=== PATIENT | female | born 2000 | race Caucasian/White ===

== ENCOUNTER 2019-11-28 16:19 | Emergency (ER) | payer BC ==
[~2019-11-28] VITALS: Ht 165.1 cm; Wt 106.3 kg
--- NOTE | 2019-11-28 17:57 | REPVR ---
PROCEDURE INFORMATION: Exam: US , Transvaginal and transabdominal. Exam date and time: 11/28/2019 5:43 PM Age: 19 years old Clinical indication: complicated by abdominal or pelvic pain; Generalized abdominal pain; First trimester; Gestational age or lmp: 6w0d; TECHNIQUE: Imaging protocol: Real-time transvaginal and transabdominal obstetrical ultrasound of the maternal pelvis and a first trimester with image documentation. Transvaginal imaging was used for better evaluation of the fetus and adnexa. COMPARISON: No relevant prior studies available. FINDINGS: Gestation: Single gestational sac demonstrated in the uterus. Average sac size is 1.8 cm. Yolk sac measuring 4 mm demonstrated. heart rate: heart rate is 98 bpm, considered low in this gestational age. BIOMETRY: Gestational age (AUA): Single pole demonstrated with a crown-rump length of 3.8 mm corresponding to a gestational age of 6 weeks 0 days. This corresponds to dates based on LMP of 10/16/2019. MATERNAL: Uterus: Uterus measures 8.5 x 4.4 x 5.8 cm. Right adnexa: Right ovarian cyst measures 2.7 x 2.3 x 2 cm. IMPRESSION: 1. Single intrauterine gestation with a crown-rump length corresponding to 6 weeks 0 days. This is concordant with dates predicted by LMP. 2. heart rate is 98 bpm, considered low in this gestational age. Continued interval follow-up suggested as clinically indicated. Electronically signed by: Ford Allred On 11/28/2019 17:56:59 PM
[2019-11-28] MEDS ORDERED: PREN1CHW6 PO (18:04)
[2019-11-28] MEDS ORDERED: ONDANSETRON 4 MG ORAL DISINTEGRATING TAB PO ONE (19:30)
[2019-11-28 20:17] VITALS: BP 128/70
[2019-11-28] MEDS ORDERED: ONDA4TAB6 PO (20:17)
== END 2019-11-28 20:28 | disposition home or self-care (01) ==
LOC: M ED 16:19
DX: O20.0 Threatened abortion (principal); O21.9 Vomiting of pregnancy, unspecified; Z3A.01 Less than 8 weeks gestation of pregnancy
CPT/HCPCS: 76801; 76817; 93976; 99283; Q0162